=== PATIENT | female | born 1995 | race African-American/Black ===

== ENCOUNTER 2018-09-24 17:24 | Outpatient (CLI) | payer MEDICAID ==
--- NOTE | 2018-09-24 18:04 | Non Stress Test Report ---
Non Stress Test Datetime Report Generated by CPN: 09/24/2018 18:03 DEMOGRAPHIC EGA NST: 23.1 INDICATION Indication for Study: Ordered by Provider Indication for Study (NST) Other: ABN AST VITAL SIGNS Temperature - NST: 98.0 RESP - NST: 12 MONITORING Monitor Explained: Monitor Explained; Test Explained; Patient Verbalized Understanding Time on Monitor: 09/24/2018 17:32 Time off Monitor: 09/24/2018 17:59 NST Duration: 27 NST INTERVENTIONS NST Interventions: PO Hydration; Reposition Patient Physician Notified NST: Dr. Patrick BABY A: [id number] BABY A Movement : Present Contraction Frequency : none FHR Baseline : 140 Accelerations : 15X15 Decelerations : None Variability : Moderate 6-25bpm NST Review: Meets Criteria for Reactive NST NST Review and Verified By : Laureen Cole RN NST Results: Reactive NST REPORT Report Trigger: Send Report
== END 2018-09-24 18:12 | disposition home or self-care (01) ==
LOC: LC 17:24
PROVIDERS: ATTEND Obstetrics & Gynecology Gynecology
PROC: 4A1HXCZ Monitoring of Products of Conception, Cardiac Rate, External Approach (ICD-10-PCS; principal; 2018-09-24)
DX: O28.8 Other abnormal findings on antenatal screening of mother (principal); Z3A.34 34 weeks gestation of pregnancy
CPT/HCPCS: 59025

== ENCOUNTER 2018-10-11 02:44 | Outpatient (CLI) | payer MEDICAID ==
[2018-10-11 03:26] LABS: APPEARANCE,URINE SLIGHTLY-CLOUDY; BILIRUBIN,URINE NEGATIVE (NEGATIVE); COLOR,URINE YELLOW; GLUCOSE, URINE >=500 mg/dL (NEGATIVE); KETONES,URINE NEGATIVE (NEGATIVE); LEUKOCYTE ESTERASE,URINE SMALL (NEGATIVE); NITRITE,URINE NEGATIVE (NEGATIVE); PROTEIN,URINE NEGATIVE (NEGATIVE); URINE SPECIFIC GRAVITY 1.012; UROBILINOGEN,URINE NEGATIVE mg/dL (<2.0)
[2018-10-11 03:42] LABS: URINE AMPHETAMINES SCREEN NEGATIVE; URINE BARBITURATES SCREEN NEGATIVE; URINE BENZODIAZEPINES SCREEN NEGATIVE; URINE COCAINE SCREEN NEGATIVE; URINE MARIJUANA (THC) SCREEN NEGATIVE; URINE METHADONE SCREEN NEGATIVE; URINE PHENCYCLIDINE SCREEN NEGATIVE
--- NOTE | 2018-10-11 04:25 | Non Stress Test Report ---
Non Stress Test Datetime Report Generated by CPN: 10/11/2018 04:25 DEMOGRAPHIC EGA NST: 37.2 INDICATION Indication for Study: Other Indication for Study (NST) Other: labor check MONITORING Monitor Explained: Monitor Explained; Test Explained; Patient Verbalized Understanding Time on Monitor: 10/11/2018 02:59 Time off Monitor: 10/11/2018 04:07 NST Duration: 68 NST INTERVENTIONS NST Interventions: PO Hydration BABY A: [id number] BABY A Movement : Present Contraction Frequency : x3 FHR Baseline : 140 Accelerations : 15X15 Decelerations : None Variability : Moderate 6-25bpm NST Review: Meets Criteria for Reactive NST NST Review and Verified By : NDoyle RN NST Results: Reactive NST REPORT Report Trigger: Send Report
== END 2018-10-11 04:13 | disposition home or self-care (01) ==
LOC: EEVIPCON 02:44 → LC 02:44
PROVIDERS: ATTEND Obstetrics & Gynecology Gynecology
PROC: 4A1HXCZ Monitoring of Products of Conception, Cardiac Rate, External Approach (ICD-10-PCS; principal; 2018-10-11)
DX: O26.893 Other specified pregnancy related conditions, third trimester (principal); R10.9 Unspecified abdominal pain; Z3A.37 37 weeks gestation of pregnancy
CPT/HCPCS: 59025; 80307; 81005

== ENCOUNTER 2018-10-25 15:27 | Outpatient (CLI) | payer MEDICAID ==
[2018-10-25 16:00] LABS: APPEARANCE,URINE SLIGHTLY-CLOUDY; BILIRUBIN,URINE NEGATIVE (NEGATIVE); COLOR,URINE YELLOW; GLUCOSE, URINE 50 mg/dL (NEGATIVE); KETONES,URINE NEGATIVE (NEGATIVE); LEUKOCYTE ESTERASE,URINE NEGATIVE (NEGATIVE); NITRITE,URINE NEGATIVE (NEGATIVE); PROTEIN,URINE NEGATIVE (NEGATIVE); URINE SPECIFIC GRAVITY 1.025
[2018-10-25 16:15] LABS: URINE AMPHETAMINES SCREEN NEGATIVE; URINE BARBITURATES SCREEN NEGATIVE; URINE BENZODIAZEPINES SCREEN NEGATIVE; URINE COCAINE SCREEN NEGATIVE; URINE MARIJUANA (THC) SCREEN NEGATIVE; URINE METHADONE SCREEN NEGATIVE; URINE PHENCYCLIDINE SCREEN NEGATIVE
--- NOTE | 2018-10-25 16:17 | Non Stress Test Report ---
Non Stress Test Datetime Report Generated by CPN: 10/25/2018 16:17 DEMOGRAPHIC EGA NST: 39.2 INDICATION Indication for Study: Ordered by Provider Indication for Study (NST) Other: labor check MONITORING Monitor Explained: Monitor Explained; Test Explained; Patient Verbalized Understanding Time on Monitor: 10/25/2018 15:44 Time off Monitor: 10/25/2018 16:10 NST Duration: 26 NST INTERVENTIONS NST Interventions: PO Hydration Physician Notified NST: Shruti Ventura, CNM BABY A: [id number] BABY A Movement : Present Contraction Frequency : irregular FHR Baseline : 140 Accelerations : 15X15 Decelerations : None Variability : Moderate 6-25bpm NST Review: Meets Criteria for Reactive NST NST Review and Verified By : MARIO Avalos NST Results: Reactive NST REPORT Report Trigger: Send Report
== END 2018-10-25 16:17 | disposition home or self-care (01) ==
LOC: LC 15:27
PROVIDERS: ATTEND Student in an Organized Health Care Education/Training Program
PROC: 4A1HXCZ Monitoring of Products of Conception, Cardiac Rate, External Approach (ICD-10-PCS; principal; 2018-10-25)
DX: O47.1 False labor at or after 37 completed weeks of gestation (principal); Z3A.39 39 weeks gestation of pregnancy
CPT/HCPCS: 59025; 80307; 81005; 84112

== ENCOUNTER 2018-11-01 03:09 | Inpatient (IN) | payer MEDICAID ==
[2018-11-01] MEDS ORDERED: RINGERS SOLUTION,LACTATED 1,000 ML IV PRN (03:51)
[2018-11-01] MEDS ORDERED: RINGERS SOLUTION,LACTATED 1,000 ML IV ONE (04:15)
[2018-11-01 04:25] LABS: APPEARANCE,URINE SLIGHTLY-CLOUDY; BILIRUBIN,URINE NEGATIVE (NEGATIVE); COLOR,URINE YELLOW; GLUCOSE, URINE 150 mg/dL (NEGATIVE); KETONES,URINE NEGATIVE (NEGATIVE); LEUKOCYTE ESTERASE,URINE LARGE (NEGATIVE); NITRITE,URINE NEGATIVE (NEGATIVE); PROTEIN,URINE NEGATIVE (NEGATIVE); URINE SPECIFIC GRAVITY 1.006; UROBILINOGEN,URINE NEGATIVE mg/dL (<2.0)
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
[2018-11-01 04:40] LABS: ABSOLUTE EOSINOPHILS # (AUTO) 0.2 10^3/uL (0.0-0.6); ABSOLUTE LYMPHOCYTES (AUTO) 1.9 10^3/uL (0.5-4.7); ABSOLUTE MONOCYTES (AUTO) 0.9 10^3/uL (0.1-1.4); ABSOLUTE NEUT (AUTO) 4.5 10^3/uL (1.7-8.2); BASOPHILS % (AUTO) 0.5 % (0-2); HEMATOCRIT 33.5 % (36.0-47.0); HEMOGLOBIN 11.6 g/dL (12.0-15.5); LYMPHOCYTES % (AUTO) 25.5 % (13-45); MEAN CORPUSCULAR HEMOGLOBIN 29.7 pg (27.0-33.4); MEAN CORPUSCULAR HGB CONC 34.6 g/dL (32.0-36.0); MEAN CORPUSCULAR VOLUME 86 fl (80-97); MONOCYTES % (AUTO) 11.4 % (3-13); PLATELET COUNT 181 10^3/uL (150-450); RED CELL DISTRIBUTION WIDTH 16.9 % (11.5-14.0); SEGMENTED NEUTROPHILS % (AUTO) 60.6 % (42-78); TOTAL CELLS COUNTED % (AUTO) 100 %; WHITE BLOOD COUNT 7.5 10^3/uL (4.0-10.5)
[2018-11-01 04:41] LABS: URINE AMPHETAMINES SCREEN NEGATIVE; URINE BARBITURATES SCREEN NEGATIVE; URINE BENZODIAZEPINES SCREEN NEGATIVE; URINE COCAINE SCREEN NEGATIVE; URINE MARIJUANA (THC) SCREEN NEGATIVE; URINE METHADONE SCREEN NEGATIVE; URINE PHENCYCLIDINE SCREEN NEGATIVE
[2018-11-01] MEDS ORDERED: MISOPROSTOL 0.2 MG TABLET ONE (04:42)
[2018-11-01] MEDS ORDERED: OXYTOCIN/NORMAL SALINE 20 UNIT/1,000 ML RTUINJ ONE (04:42)
[2018-11-01] MEDS ORDERED: LIDOCAINE 1% INJ-PF (10 MG/ML) 30 ML SDV ONE (04:42)
[2018-11-01] MEDS ORDERED: OXYTOCIN 10 UNIT/ML VIAL ONE (04:42)
[2018-11-01] MEDS ORDERED: PHENYLEPHRINE HCL INJ/PF 10 MG/1 ML SDV ONE ×2 (05:11→07:57)
[2018-11-01] MEDS ORDERED: EPHEDRINE SULFATE INJ 50 MG/1 ML AMPULE ONE (05:12)
[2018-11-01] MEDS ORDERED: FENTANYL/BUPIVACAINE/NS/PF 300 MCG/150 ML RTUINJ EPI ONE (05:12)
[2018-11-01] MEDS ORDERED: FENTANYL CITRATE INJ/PF 100 MCG/2 ML AMPUL ONE (05:12)
[2018-11-01] MEDS ORDERED: BUPIVACAINE HCL 0.25 % INJ/PF (2.5 MG/1 ML) 30 ML VIAL ONE (05:13)
--- NOTE | 2018-11-01 09:38 | Warning Signs in Babies ---
VOD Warning Signs Datetime Report Generated by [facility]: 11/01/2018 09:38 VOD#608 -Warning Signs in Babies: Viewed with Parent(s)/Family (11/01/2018 09:13:Andrei Pearson RN)
[2018-11-01] MEDS ORDERED: ZOLPIDEM TARTRATE 5 MG TABLET PO PRN (11:40)
[2018-11-01] MEDS ORDERED: NA PHOS,M-B/NA PHOS,DI-BA (ADULT) 133 ML ENEMA PR PRN (11:40)
[2018-11-01] MEDS ORDERED: PROMETHAZINE HCL INJ 25 MG/1 ML VIAL IV PRN (11:40)
[2018-11-01] MEDS ORDERED: MAGNESIUM HYDROXIDE SUSP 30 ML UDCUP PO PRN (11:40)
[2018-11-01] MEDS ORDERED: DIBUCAINE 1% OINTMENT 56 GM TP PRN (11:40)
[2018-11-01] MEDS ORDERED: OXYTOCIN/NORMAL SALINE 20 UNIT/1,000 ML RTUINJ IV PRN (11:40)
[2018-11-01] MEDS ORDERED: PSEUDOEPHEDRINE HCL 30 MG TABLET PO PRN (11:40)
[2018-11-01] MEDS ORDERED: PROMETHAZINE HCL 25 MG SUPP.RECT PR PRN (11:40)
[2018-11-01] MEDS ORDERED: BENZOCAINE/MENTHOL AEROSOL SPRAY 56 ML TOP PRN (11:40)
[2018-11-01] MEDS ORDERED: MEASLES,MUMPS&RUBELLA VACC/PF 0.5 ML VIAL SUBCUT PRN (11:40)
[2018-11-01] MEDS ORDERED: GLYCERIN/WITCH HAZEL LEAF 1 EACH MED..WIPE TP PRN (11:40)
[2018-11-01] MEDS ORDERED: PROMETHAZINE HCL 25 MG TABLET PO PRN (11:40)
[2018-11-01] MEDS ORDERED: ACETAMINOPHEN WITH CODEINE #3 TABLET PO PRN (11:40)
[2018-11-01] MEDS ORDERED: ACETAMINOPHEN 325 MG TABLET PO PRN (11:40)
[2018-11-01] MEDS ORDERED: DIPH/PERTUSS(ACELL)/TETANUS VAC/PF 0.5 ML SYR (>=10YO) IM PRN (11:40)
[2018-11-01] MEDS ORDERED: DIPHENHYDRAMINE HCL 25 MG CAPSULE PO PRN (11:40)
[2018-11-01] MEDS ORDERED: IBUPROFEN 800 MG TABLET ONE (13:10)
[2018-11-01] MEDS: IBUPROFEN 800 MG TABLET PO SCH ×2 (13:14→22:26)
--- NOTE | 2018-11-01 14:22 | Delivery Summary ---
Del Sum A-C Datetime Report Generated by CPN: 11/01/2018 14:22 DELIVERY PERSONNEL DELIVERY PERSONNEL: [id number] Delivery Doctor:: Jael Kelley CNM Labor and Delivery Nurse:: Andrei Pearson RNpurchase analyst Nurse:: Maggie Welsh RN Nursery Nurse:: Phyllis Esparza RN Cover Creaser/MECHANICAL TECHNICIAN: Gutierrez Valencia CST Cover Creaser/MECHANICAL TECHNICIAN: Araceli Weiss, ST MATERNAL INFORMATION Delivery Anesthesia: Epidural Medications After Delivery: Pitocin Bolus-Please Comment; Cytotec 800mcg Per Rectum/Vagina Meds After Delivery Comment: 20 units pitocin given in bolus after delivery of placenta Delivery QBL: 400 Maternal Complications: None LABOR SUMMARY EDC: 10/30/2018 00:00 No. Babies in Womb: 1 Attempted: No Labor Anesthesia: Epidural LABOR INFORMATION Reason for Induction: Not Applicable Onset of Labor: 11/01/2018 03:32 Complete Dilatation: 11/01/2018 11:15 Oxytocin: N/A Group B Beta Strep: negative Antibiotics # of Doses: 0 Steroids Given: None Reason Steroids Not Administered: Not Applicable MEMBRANES Membranes Rupture Method: Artificial Rupture of Membranes: 11/01/2018 08:59 Length of Rupture (hr): 2.40 Amniotic Fluid Color: Light Meconium Amniotic Fluid Amount: Small Amniotic Fluid Odor: Normal STAGES OF LABOR Stage 1 hr: 7 Stage 1 min: 43 Stage 2 hr: 0 Stage 2 min: 8 Stage 3 hr: 0 Stage 3 min: 3 Total Time in Labor hr: 7 Total Time in Labor min: 54 VAGINAL DELIVERY Episiotomy: None Laceration #1: Perineal Laceration Extension #1: Second Degree Laceration Repair: Yes Sponge Count Correct: N/A Sharps Count Correct: Yes CSECTION DELIVERY Primary Indication: N/A Secondary Indication: N/A CSection Incidence: N/A Labor: N/A Elective: N/A CSection Incision: N/A BABY A INFORMATION Delivery Date/Time: 11/01/2018 11:23 Method of Delivery: Vaginal Born in Route : No : N/A Forceps: N/A Vacuum Extraction: N/A Shoulder Dystocia : No PRESENTATION/POSITION BABY A Presentation: Cephalic Cephalic Presentation: Vertex Vertex Position: Left Occipital Anterior Breech Presentation: N/A PLACENTA INFORMATION BABY A Placenta Delivery Time : 11/01/2018 11:26 Placenta Method of Delivery: Spontaneous Placenta Status: Delivered SCORES BABY A Heart Rate 1 min: >100 bpm Resp Effort 1 min: Good Cry Reflex Irritability 1 min: Cough or Sneeze or Pulls Away Muscle Tone 1 min: Active Motion Color 1 min: Body [place], Extremities Blue Resuscitation Effort 1 min: Tactile Stimulation SCORE 1 MIN: 9 Heart Rate 5 min: >100 bpm Resp Effort 5 min: Good Cry Reflex Irritability 5 min: Cough or Sneeze or Pulls Away Muscle Tone 5 min: Active Motion Color 5 min: Body [place], Extremities Blue Resuscitation Effort 5 min: Tactile Stimulation SCORE 5 MIN: 9 INFANT INFORMATION BABY A Gestational Age at Delivery: 40.2 Gestational Status: Full Term- 39- 40.6 Weeks Outcome : Liveborn Condition : Stable Sex: Female IDENTIFICATION BABY A Verification Date/Time: 11/01/2018 11:36 ID Band Number: [id number] Mother's Name Verified: Yes Infant RN Verifying Infant: Maggie Welsh Additional Verifying Personnel: Andrei Michel WEIGHT/LENGTH BABY A Birthweight (gm): 2880 Infant Weight (lb): 6 Infant Weight (oz): 6 Infant Length (in): 19.00 Length (cm): 48.26 CORD INFORMATION BABY A No. Cord Vessels: 3 Nuchal Cord : N/A Cord Blood Taken: Yes-For Storage (Mom's Blood type +) Suction: None ASSESSMENT BABY A Infant Complications: None Physical Findings at Delivery: Within Normal Limits Infant Respirations: Appears Normal Skin to Skin: Yes Skin to Skin Time (min): 60 Thermometer Production Worker/ALS Called : No Care By: Morena Esparza RN Transferred To: Remains with Mother
[2018-11-01] MEDS ORDERED: MISOPROSTOL 0.1 MG TABLET PR ONE (16:13)
[2018-11-01] MEDS: DOCUSATE SODIUM 100 MG CAPSULE PO SCH (18:33)
[2018-11-01] MEDS: FERROUS SULFATE 325 MG TABLET PO SCH (18:33)
[2018-11-01] MEDS: FAMOTIDINE 20 MG TABLET PO SCH (22:26)
[2018-11-02 06:37] LABS: HEMOGLOBIN 11.1 g/dL (12.0-15.5); MEAN CORPUSCULAR HEMOGLOBIN 30.1 pg (27.0-33.4); MEAN CORPUSCULAR HGB CONC 34.7 g/dL (32.0-36.0); MEAN CORPUSCULAR VOLUME 87 fl (80-97); PLATELET COUNT 152 10^3/uL (150-450); RED BLOOD COUNT 3.69 10^6/uL (3.72-5.28); RED CELL DISTRIBUTION WIDTH 16.8 % (11.5-14.0); WHITE BLOOD COUNT 7.9 10^3/uL (4.0-10.5)
[2018-11-02] MEDS: IBUPROFEN 800 MG TABLET PO SCH ×3 (07:10→21:18)
[2018-11-02] MEDS: PRENATAL VITAMIN W DHA CAPSULE PO SCH (10:18)
[2018-11-02] MEDS: DOCUSATE SODIUM 100 MG CAPSULE PO SCH ×2 (10:18→18:06)
[2018-11-02] MEDS: FERROUS SULFATE 325 MG TABLET PO SCH ×2 (10:18→18:06)
[2018-11-02] MEDS: FAMOTIDINE 20 MG TABLET PO SCH ×2 (10:19→21:18)
[2018-11-02] MEDS: SENNOSIDES/DOCUSATE 8.6-50 MG 1 EACH TABLET PO SCH (10:19)
--- NOTE | 2018-11-02 17:10 | PDOC PROGRESS REPORT ---
Subjective-OB Progress Note for:: 11/02/18 - late entry 1100 Subjective: reports bleeding slowing, pain controlled with current meds, denies needs. Physical Exam (OB) Vital Signs: Temp Pulse Resp BP Pulse Ox 98.5 F 83 20 132/77 H 100 11/02/18 10:24 11/02/18 10:24 11/02/18 10:24 11/02/18 10:24 11/02/18 10:24 Intake & Output 11/01/18 11/02/18 11/03/18 06:59 06:59 06:59 Intake Total 200 Balance 200 Weight 85.3 kg - Abdomen Description: Soft, Round Hernia Present: No Fundal Description: Firm, Midline Fundal Height: u/u - u/2 - Abdominal Distension: No distension Tenderness: Nontender - Extremities Lower extremities: Urvashi's sign - neg Calf: Normal, Nontender Objective-Diagnostic Laboratory: 11/02/18 06:20 11/02/18 06:20 WBC 7.9 RBC 3.69 L Hgb 11.1 L Hct 32.0 L MCV 87 MCH 30.1 MCHC 34.7 RDW 16.8 H Plt Count 152 Assessment and Plan(PN) - Assessment and Plan (1) Normal vaginal delivery Is this a current diagnosis for this admission?: Yes (2) Obstetrical laceration, second degree Is this a current diagnosis for this admission?: Yes - Time Spent with Patient Time with patient: Less than 15 minutes Medications reviewed and adjusted accordingly: Yes - Disposition Anticipated Discharge: Home Within: within 24 hours
[2018-11-02] MEDS: ACETAMINOPHEN WITH CODEINE #3 TABLET PO PRN (20:55)
[2018-11-03] MEDS: ACETAMINOPHEN WITH CODEINE #3 TABLET PO PRN (04:35)
[2018-11-03] MEDS: IBUPROFEN 800 MG TABLET PO SCH (05:34)
[2018-11-03] MEDS: DOCUSATE SODIUM 100 MG CAPSULE PO SCH (09:26)
[2018-11-03] MEDS: FERROUS SULFATE 325 MG TABLET PO SCH (09:26)
[2018-11-03] MEDS: FAMOTIDINE 20 MG TABLET PO SCH (09:26)
[2018-11-03] MEDS: SENNOSIDES/DOCUSATE 8.6-50 MG 1 EACH TABLET PO SCH (09:26)
[2018-11-03] MEDS: PRENATAL VITAMIN W DHA CAPSULE PO SCH (09:26)
--- NOTE | 2018-11-03 10:12 | PDOC DISCHARGE SUMMARY ---
Final Diagnosis Discharge Date: 11/03/18 - Final Diagnosis (1) Normal vaginal delivery Is this a current diagnosis for this admission?: Yes (2) Obstetrical laceration, second degree Is this a current diagnosis for this admission?: Yes Discharge Data - Discharge Medication Prescriptions: Ibuprofen [Motrin 800 mg Tablet] 800 mg PO Q8HP PRN #60 tablet PRN Reason: Home Medications: 95/Iron Fum/Folic/Dha [ + Dha Combo Pack] 1 each PO DAILY 10/11/18 Docusate Sodium [Colace 100 mg Capsule] 100 mg PO BID capsule 11/03/18 Ibuprofen [Motrin 800 mg Tablet] 800 mg PO Q8HP PRN #60 tablet 11/03/18 Procedures: NST Intrapartum Procedure(s): Spontaneous Vaginal Delivery Complication(s): Laceration-Perineal Laceration-Degree: 2nd - Diagnosis Test Laboratory: Temp Pulse Resp BP Pulse Ox 98.5 F 83 20 132/77 H 100 11/03/18 08:18 11/03/18 08:18 11/03/18 08:18 11/03/18 08:18 11/03/18 08:18 11/01/18 11/01/18 11/02/18 02:25 04:29 06:20 RBC 3.90 3.69 L Hgb 11.6 L 11.1 L Hct 33.5 L 32.0 L Urine Opiates Screen NEGATIVE - Discharge information/Instructions Discharge Activity: Balance Activity w/Rest, Pelvic Rest Discharge Diet: Regular Disposition: HOME, SELF-CARE Follow up with: [facility] in: 4, Weeks
[2018-11-03 11:45] VITALS: BP 132/77
== END 2018-11-03 13:02 | disposition home or self-care (01) | DRG 807 ==
LOC: LC 03:09 → EEVIPCON 04:17 → LR 04:17 → 2S 14:14
PROVIDERS: ADMIT Student in an Organized Health Care Education/Training Program; ATTEND Student in an Organized Health Care Education/Training Program
PROC: 10E0XZZ Delivery of Products of Conception, External Approach (ICD-10-PCS; principal; 2018-11-01)
PROC: 0KQM0ZZ Repair Perineum Muscle, Open Approach (ICD-10-PCS; 2018-11-01)
PROC: 10907ZC Drainage of Amniotic Fluid, Therapeutic from Products of Conception, Via Natural or Artificial Opening (ICD-10-PCS; 2018-11-01)
DX: O70.1 Second degree perineal laceration during delivery (principal); Z37.0 Single live birth; Z3A.40 40 weeks gestation of pregnancy; Z87.891 Personal history of nicotine dependence
CPT/HCPCS: 36415; 80307; 81005; 85025; 85027; 86592; 86850; 86900; 86901; J2370; J2590; J3010; J3490

== ENCOUNTER 2019-01-30 20:42 | Emergency (ER) | payer MEDICAID ==
--- NOTE | 2019-01-30 21:54 | ER Document Report ---
ED General - General Chief Complaint: Ear Pain Stated Complaint: LOSS OF HEARING RIGHT EAR Time Seen by Provider: 01/30/19 21:50 Primary Care Provider: MARIAELENA HUERTAS MD [Primary Care Provider] - Follow up in 1 week TRAVEL OUTSIDE OF THE [place] IN LAST 30 DAYS: No - HPI Notes: 24-year-old female to the emergency department with complaints of bilateral ear pain for the past several days and off and on left ankle pain for several weeks. She states that she saw some drainage from her ears and they felt full. She states that she has had a little bit of decrease in hearing as well. She denies any fevers or chills, sore throat, cough. She states that she felt like maybe she had some sinus pressure as well. As for her ankle she broke this ankle several years ago and had a fibular fixation performed. She states that she is noticed some bruising to the ankle and has had some pain so she is concerned about the state of her hardware. She denies any recent falls or any other complaints. She has not been wearing a brace or taking any medicine for the pain. - Related Data Allergies/Adverse Reactions: No Known Allergies Allergy (Verified 10/25/18 15:57) Past Medical History - General Information source: Patient - Social History Smoking Status: Never Smoker Family History: Reviewed & Not Pertinent Patient has suicidal ideation: No Patient has homicidal ideation: No - Past Medical History Cardiac Medical History: Denies: Hx Coronary Artery Disease, Hx Heart Attack, Hx Hypertension Pulmonary Medical History: Denies: Hx Asthma, Hx Bronchitis, Hx COPD, Hx Pneumonia Neurological Medical History: Denies: Hx Cerebrovascular Accident, Hx Seizures Musculoskeletal Medical History: Denies Hx Arthritis - Immunizations Immunizations up to date: Yes Hx Diphtheria, Pertussis, Tetanus Vaccination: Yes Review of Systems - Review of Systems Constitutional: denies: Chills, Fever EENT: Ear pain, Sinus pressure. denies: Nose pain, Nose congestion Cardiovascular: denies: Chest pain, Lightheaded Respiratory: denies: Cough, Short of breath Gastrointestinal: denies: Abdominal pain, Diarrhea, Nausea, Vomiting Genitourinary: No symptoms reported Female Genitourinary: No symptoms reported Musculoskeletal: See HPI, Joint pain Skin: No symptoms reported Neurological/Psychological: No symptoms reported -: Yes All other systems reviewed and negative Physical Exam - Vital signs Vitals: Temp Pulse Resp BP Pulse Ox 98.3 F 77 17 155/86 H 100 01/30/19 21:12 01/30/19 21:12 01/30/19 21:12 01/30/19 21:12 01/30/19 21:12 Interpretation: Normal - General General appearance: Appears well, Alert In distress: None - HEENT Head: Normocephalic, Atraumatic Eyes: Normal Pupils: PERRL Tympanic membrane: Bulging, Injected. No: Perforation, Purulent effusion - Bilateral TMs are erythematous and bulging. There is no perforation. there is no purulent discharge. Sinus: Normal Nasal: Normal Mouth/Lips: Normal Mucous membranes: Normal Pharynx: Normal Neck: Normal, Supple. No: Lymphadenopathy, Meningismus - Respiratory Respiratory status: No respiratory distress Chest status: Nontender Breath sounds: Normal Chest palpation: Normal - Cardiovascular Rhythm: Regular Heart sounds: Normal auscultation Murmur: No - Extremities Ankle: Tender - mild TTP over the left ankle with noted healed surgical scar. there is no edema and no erythema. Patient is able to ambulate on the ankle with no difficulty Course - Re-evaluation Re-evalutation: 01/30/19 Impression: Bilateral otitis media, left ankle pain. XR with intact hardware and no new fractures. Will give Vladimir wrap for support of the ankle, start on Abx for ears and give Motrin. PCP follow up. Patient agrees with the plan. - Vital Signs Vital signs: Temp Pulse Resp BP Pulse Ox 98.0 F 68 17 136/81 H 100 01/30/19 23:23 01/30/19 23:23 01/30/19 21:12 01/30/19 23:23 01/30/19 23:23 - Diagnostic Test Radiology reviewed: Image reviewed, Reports reviewed Discharge - Discharge Clinical Impression: Left ankle pain Otitis media Qualifiers: Otitis media type: suppurative Chronicity: acute Laterality: bilateral Recurrence: not specified as recurrent Spontaneous tympanic membrane rupture: without spontaneous rupture Qualified Code(s): H66.003 - Acute suppurative otitis media without spontaneous rupture of ear drum, bilateral Condition: Stable Disposition: HOME, SELF-CARE Instructions: Vladimir Wrap ([facility]), Otitis Media ([facility]) Additional Instructions: COMPLETE ANTIBIOTICS. RETURN IF SYMPTOMS WORSEN. MOTRIN FOR PAIN CONTROL. USE VLADIMIR WRAP TO SUPPORT ANKLE. FOLLOW UP WITH PRIMARY CARE> Prescriptions: Ibuprofen [Motrin 600 mg Tablet] 600 mg PO Q8HP PRN #24 tablet PRN Reason: Amoxicillin Trihydrate [Amoxil 500 mg Capsule] 500 mg PO TID #30 capsule Referrals: MARIAELENA HUERTAS MD [Primary Care Provider] - Follow up in 1 week
--- NOTE | 2019-01-30 22:47 | RADIOLOGY REPORT (SQ) ---
XR ANKLE 2 VIEWS CLINICAL STATEMENT: left ankle pain COMPARISON: 03/02/2015 FINDINGS: Bony alignment is anatomic. There is no fracture or dislocation. The soft tissues are unremarkable. The distal fibula fixation plate and screws noted. Moderate ankle joint degenerative changes. No significant soft tissue swelling. IMPRESSION: No fracture. Moderate degenerative changes.
[2019-01-30 23:23] VITALS: BP 136/81
== END 2019-01-30 23:21 | disposition home or self-care (01) ==
LOC: ER 20:42
DX: H66.003 Acute suppurative otitis media without spontaneous rupture of ear drum, bilateral (principal); M25.572 Pain in left ankle and joints of left foot; H92.03 Otalgia, bilateral; R09.89 Other specified symptoms and signs involving the circulatory and respiratory systems; Z98.890 Other specified postprocedural states
CPT/HCPCS: 99283